=== PATIENT | female | born 1975 | race Caucasian/White ===

== ENCOUNTER → 2016-10-07 | Day surgery (SDC) | payer OTHER ==
[~2016-10-07] MED LIST: DIAZ5TAB4 PO; FENTANYL PF 100 MCG/2 ML VIAL. IV PRN; IV RINGERS,LACTATED 1000ML 1,000 ML IV SCH; LIDOCAINE 1% 1 ML SYRINGE. ID PRN; LIDOCAINE 2% PF Vial for OR 5 ML VIAL. ONE; LORA0.5T PO; MIDAZOLAM HCL 2 MG/2 ML VIAL. IV PRN; MIRT15TA3 PO; PROPOFOL 20 ML IV ONE
[2016-10-07 08:36] VITALS: BP 96/58
--- NOTE | 2016-10-10 14:41 | PATHOLOGY ---
PATHOLOGY REPORT * * * * * * * * FINAL DIAGNOSIS: Colon biopsies, sigmoid polyps x 2: - Hyperplastic polyps. COMMENT: There are no adenomatous changes or evidence of malignancy. (JPM:; d/t: 10/10/16) REPORT ELECTRONICALLY SIGNED BY: Maxim Cerda M.D. DATE/TIME: 10/10/2016 14:39 * * * * * * * * GROSS PATHOLOGY: Received in formalin labeled "Yumiko Townsend and sigmoid polyps 2," are 5 segments of prater soft tissue measuring 1.6 x 0.2 x 0.2 cm in aggregate dimensions and ranging from 0.3 to 0.4 cm in maximum dimension. The specimen is submitted entirely in cassette A1. (TTL; 10/07/2016) INITIAL CPT CODE(S): A; 31388 Professional services performed [place] [facility] [address] Technical services performed by [facility] at [address] [place] [id number], [facility] [address], [place] [address]. SPECIMEN(S) RECEIVED: A.Sigmoid polyp CLINICAL HISTORY: Rectal bleed, anemia PATIENT: YUMIKO TOWNSEND /AGE: 1105/19/1975 (Age: 41) PATIENT #: [id number] ALT CASE #: SPECIMEN COLLECTION DATE: 10/07/2016 SPECIMEN RECEIVED DATE: 10/07/2016 [facility] - [address] [place] [address] - PHONE: [phone] * * * END OF REPORT * * *
== END | disposition home or self-care (01) ==
LOC: ENDOS 06:32
PROVIDERS: ATTEND Internal Medicine Gastroenterology
DX: K64.0 First degree hemorrhoids (principal); D12.5 Benign neoplasm of sigmoid colon; K21.9 Gastro-esophageal reflux disease without esophagitis; F41.9 Anxiety disorder, unspecified; F17.200 Nicotine dependence, unspecified, uncomplicated; Z72.89 Other problems related to lifestyle
CPT/HCPCS: 45380; J2704